=== PATIENT | female | born 1980 ===

== ENCOUNTER 2022-02-09 06:26 | Day surgery (SDC) | payer OTHER ==
[2022-02-09] MEDS ORDERED: ULTRACET PO (13:05)
[2022-02-09] MEDS ORDERED: NEURONTIN600 M1 PO (13:06)
[2022-02-09] MEDS ORDERED: POLY119PG PO (13:06)
== END 2022-02-09 16:35 | disposition home or self-care (01) ==
LOC: CIR.AMB 06:26
PROVIDERS: ATTEND Surgery
DX: N80.C19 Endometriosis of the anterior abdominal wall, unspecified depth (principal); K43.2 Incisional hernia without obstruction or gangrene; D21.4 Benign neoplasm of connective and other soft tissue of abdomen